=== PATIENT | female | born 1945 | race Caucasian/White ===

== ENCOUNTER 2018-03-01 17:20 | Emergency (ER) | payer OTHER, MEDICARE ==
[~2018-03-01] VITALS: Ht 157.5 cm; Wt 68.0 kg
[2018-03-01 19:24] VITALS: BP 137/80
== END 2018-03-01 19:24 | disposition home or self-care (01) ==
LOC: ER 17:20
DX: S32.10XA Unspecified fracture of sacrum, initial encounter for closed fracture (principal); M06.9 Rheumatoid arthritis, unspecified; I10 Essential (primary) hypertension; W19.XXXA Unspecified fall, initial encounter; Y93.89 Activity, other specified; Y92.89 Other specified places as the place of occurrence of the external cause; Y99.8 Other external cause status

== ENCOUNTER → 2018-05-08 | Outpatient (CLI) | payer OTHER, MEDICARE ==
[~2018-05-08] VITALS: Ht 160 cm; Wt 65.8 kg
[~2018-05-08] MED LIST: CIPRO500 MG PO; FOLIC ACID1 MG PO; METHOTREXATE 22.5 MG PO; MOBIC15 MG PO; NEURONTIN 400400 M1 PO; PROTONIX40 M1 PO; PROZAC20 MG PO; REMICADE 1100 MG/VIA IV; SIMVASTATIN40 MG PO; SULFASALAZINE500 M1 PO; SYNTHROID100 MC1 PO; TOPROL XL25 MG PO; TRAMADOL 50 MG50 MG PO
--- NOTE | ~2018-05-08 | PATH ---
[facility] [place] [address] PATHOLOGY RPT PROCEDURE Name: CANDACEMIRIAM C Room #: REG Richard Boss.#: [id number] Admission: 05/08/18 Date of : 47 Discharge: Report #: [id number] Path Case #: [id number] [facility] Accession Number: [id number] . 01 Material submitted: . RANDOM COLON BX R/O MICROSCOPIC COLITIS . 01 Clinical history: . Diarrhea, R/O microscopic colitis . 02 Diagnosis: Colonic mucosa "random colon biopsy, rule out microscopic colitis": - Consistent with microscopic colitis. See comment. . (SHA:bobby; 05/10/18) QL/05/10/2018 . 02 Comment: The colonic mucosa reveals well preserved architecture with increased intraepithelial lymphocytes and increased lamina propria, lymphocytes and plasma cells. . There is no evidence of changes of inflammatory bowel disease, atypia or malignancy. . (SHA:mml; 05/10/18) . 02 Electronically signed: . Hayden Escoto MD, Pathologist NPI- [id number] . 01 Gross description: . The specimen is received in formalin, labeled "Miriam Maria, random colon biopsy, R/O microscopic colitis". Received are five segments of pale caraballo soft tissue ranging in size from 0.3 to 0.6 cm in maximum dimensions. The specimen is submitted entirely in cassette A1. (CAA; 05/09/2018) QAC/QAC . 02 Pathologist provided ICD-10: K52.839 . 02 CPT . 385113 Specimen Comment: A courtesy copy of this report has been sent to Specimen Comment: [phone], . Specimen Comment: Report sent to / DR BLUE [address] [address] PATHOLOGY RPT PROCEDURE Name: MIRIAM MARIA Room #: REG ANIYAH Houser#: [id number] Admission: 05/08/18 Date of : 47 Discharge: Report #: [id number] Path Case #: [id number] Performed at: 01 [facility] [address], [place] [id number] MD Keagan Okeefe MD Phone: [phone] Performed at: [address] [id number] MD Priscila Ragland MD Phone: [phone]
--- NOTE | ~2018-05-08 | P ---
[facility] [place] [address] [place] [address] PROCEDURE REPORT Name: CANDACEESTER Rao Room #: REG [facility]#: [id number] Admission: 05/08/18 Attend Phys: Sumit Miramontes Discharge: Date of : 47 Report #: [id number] THIS REPORT FOR: //name// CC: Sumit Orozco MD DATE OF SERVICE: 05/08/2018 PROCEDURE PERFORMED: Colonoscopy with biopsies. HISTORY OF PRESENT ILLNESS: The patient is a 73-year-old female who apparently had a fall resulting in a sacral fracture and had been in rehab. For the last 10 weeks, she has been having chronic diarrhea up to 3 times per day. Stool samples reportedly negative. She denies any abdominal pain or blood in her stools. Last colonoscopy was greater than 20 years ago. No family history of colon cancer or inflammatory bowel disease. The patient is currently on Cipro, but has not been on antibiotics the entire time. DESCRIPTION OF PROCEDURE: The risks and benefits of the procedure were explained to the patient, those risks including but not limited to bleeding, perforation and the risk of sedation. She understood these risks and gave informed consent. Sedation was given using propofol per Anesthesia. Next, a digital rectal exam was initially performed, which was normal. Next, using a standard Olympus colonoscope, the scope was placed in the patient's anus and advanced under direct vision to the cecum. The overall prep was excellent. The cecum and ileocecal valve were normal in appearance. The terminal ileum was intubated and normal in appearance. The ascending, transverse, descending and sigmoid colon were all normal. Because of her history of diarrhea, biopsies were obtained to rule out the possibility of microscopic colitis. The rectal mucosa was normal. On retroflexion, no abnormalities were noted. The scope was then withdrawn and the procedure terminated. The patient tolerated the procedure well. IMPRESSION: Normal colonoscopy. RECOMMENDATIONS: 1. Await biopsy results. 2. Recommend a trial of probiotics. 3. If no improvement, consider Questran on a daily basis. [address] [address] PROCEDURE REPORT Name: ESTER MARIA Room #: REG ANIYAH oHuser#: [id number] Admission: 05/08/18 Attend Phys: Sumit Miramontes Discharge: Date of : 47 Report #: [id number] Thank you for allowing me to participate in her care. By: [id number] Sumit Abdalla MD /nt
== END | disposition home or self-care (01) ==
LOC: GI 08:34
DX: K52.839 Microscopic colitis, unspecified (principal); I10 Essential (primary) hypertension; F32.9 Major depressive disorder, single episode, unspecified; E78.5 Hyperlipidemia, unspecified; K21.9 Gastro-esophageal reflux disease without esophagitis; M06.9 Rheumatoid arthritis, unspecified; Z90.49 Acquired absence of other specified parts of digestive tract; Z98.51 Tubal ligation status; Z98.890 Other specified postprocedural states; Z79.899 Other long term (current) drug therapy; Z87.891 Personal history of nicotine dependence
CPT/HCPCS: 62110; 62900